=== PATIENT | female | born 1945 | race Hispanic/Latino ===

== ENCOUNTER 2017-10-10 11:22 | Outpatient (CLI) | payer MEDICARE ==
--- NOTE | 2017-10-10 12:41 | XRay Report ---
LEFT KNEE, 3 views: History: Unspecified fracture of upper end of the tibia Compared to 08/06/17. There has been previous internal fixation of a left tibial plateau fracture with metal plate and screws. Alignment is anatomic. Calcified callus bridges the fracture site although the fracture lines remain faintly visible. The remainder of the bony structures are intact. No acute injury is appreciated. The soft tissues are unremarkable. IMPRESSION: Internally fixated and healing left tibial plateau fracture.
== END 2017-10-10 11:23 | disposition home or self-care (01) ==
LOC: XRAY 11:22
PROVIDERS: ATTEND Orthopaedic Surgery
DX: S82.102D Unspecified fracture of upper end of left tibia, subsequent encounter for closed fracture with routine healing (principal); X58.XXXD Exposure to other specified factors, subsequent encounter

== ENCOUNTER 2018-01-26 12:38 | Outpatient (CLI) | payer MEDICARE ==
--- NOTE | 2018-01-29 08:50 | Mammography Report ---
BILATERAL DIGITAL SCREENING MAMMOGRAM WITH CAD: 01/26/18 12:38:00 CLINICAL: Routine screening.Breast cancer survivor status post left partial mastectomy . COMPARISON:01/19/17 and left mammogram 02/06/17 FINDINGS: The breasts are heterogeneously dense, which may obscure small masses. Stable left upper postsurgical scar. Bilateral benign calcifications. The previously described right upper outer clustered calcifications are unchanged from a year ago. No mass, architectural distortion or suspicious calcifications. IMPRESSION: No mammographic evidence of malignancy. BI-RADS CATEGORY: 2 -- Benign RECOMMENDATION: Routine mammographic screening in one year. COMMENT: Patient follow-up letters are generated via our [employer] application.
== END 2018-01-26 12:39 | disposition home or self-care (01) ==
LOC: SPVWC 12:38
PROVIDERS: ATTEND Internal Medicine Hematology & Oncology
DX: Z12.31 Encounter for screening mammogram for malignant neoplasm of breast (principal)
CPT/HCPCS: 77067

== ENCOUNTER 2018-04-06 11:22 | Outpatient (CLI) | payer MEDICARE ==
--- NOTE | 2018-04-06 12:49 | XRay Report ---
Left knee 3 views: History: Pain in left knee. Findings: There is internal fixation noted of tibial plateau fracture with late and screws. Stable hardware. Mild arthritic changes medial compartment knee joint. No evidence of acute fracture. No joint effusion. Impression: Stable hardware. Mild degenerative changes.
== END 2018-04-06 11:23 | disposition home or self-care (01) ==
LOC: XRAY 11:22
PROVIDERS: ATTEND Orthopaedic Surgery
DX: M17.12 Unilateral primary osteoarthritis, left knee (principal)

== ENCOUNTER 2019-02-06 14:19 | Outpatient (CLI) | payer MEDICARE ==
--- NOTE | 2019-02-06 16:28 | Mammography Report ---
BILATERAL DIGITAL SCREENING MAMMOGRAM WITH CAD: 02/06/19 14:19:00 CLINICAL: Routine screening.Breast cancer survivor status post left partial mastectomy . COMPARISON:01/26/18 and 08/17/16 FINDINGS: The breasts are heterogeneously dense, which may obscure small masses. Stable left upper posterior benign postsurgical scar. Scattered bilateral benign calcifications. No mass, suspicious architectural distortion or suspicious calcifications. IMPRESSION: No mammographic evidence of malignancy. BI-RADS CATEGORY: 2 -- Benign RECOMMENDATION: Routine mammographic screening in one year. COMMENT: Patient follow-up letters are generated via our [employer] application.
== END 2019-02-06 14:20 | disposition home or self-care (01) ==
LOC: SPVWC 14:19
PROVIDERS: ATTEND Internal Medicine Hematology & Oncology
DX: Z12.31 Encounter for screening mammogram for malignant neoplasm of breast (principal); E78.00 Pure hypercholesterolemia, unspecified; I10 Essential (primary) hypertension; Z90.710 Acquired absence of both cervix and uterus
CPT/HCPCS: 77067

== ENCOUNTER 2020-06-10 13:53 | Outpatient (CLI) | payer MEDICARE ==
--- NOTE | 2020-06-10 17:23 | Ultrasound Report ---
LEFT DIGITAL DIAGNOSTIC MAMMOGRAM WITH CAD -- 06/10/2020 LEFT LIMITED BREAST ULTRASOUND INDICATION: Abnormal screening mammogram. Follow-up of left breast density. TECHNIQUE: Digital left mammographic imaging was performed. Spot compression views were obtained. Li mited ultrasound was performed. This examination was interpreted with the benefit of Computer-Aided D etection (CAD) analysis. COMPARISON: 05/14/2028, 02/06/2019 FINDINGS: Breast Density: The breasts are extremely dense, which lowers the sensitivity of mammography. MAMMOGRAPHIC FINDINGS: A 9.2 x 7.6 mm spiculated mass persists in the upper outer quadrant of the mid dle depth of the left breast with 4 internal round calcifications. ULTRASOUND FINDINGS: Targeted ultrasound evaluation was performed of the area of interest. In the 2 :00 position, 3 cm from the nipple is a taller than wide hypoechoic solid, calcified mass measuring 9 .1 x 6.3 mm I correlates with the mammographic abnormality. Mildly increased color flow is noted with in/adjacent to this lesion. No right axillary lymphadenopathy or other significant abnormality. IMPRESSION: Highly suspicious left breast mass as above. Biopsy with ultrasound guidance is recommended for furth er evaluation. Follow up recommendation: Biopsy BI-RADS Category 5: Highly Suggestive of Malignancy. A "normal" or negative report should not discourage follow up or biopsy of a clinically significant f inding. A written summary of these findings will be mailed to the patient. The patient will be entered into a mammography reporting system which will generate a reminder letter for the patient's next appointmen t at the appropriate interval. According to the [employer], yearly mammograms are recommended starting at age 40 and continuing as long as a woman is in good health. Breast MRI is recommended for women with an sofia roximately 20-25% or greater lifetime risk of breast cancer, including women with a strong family his tory of breast or ovarian cancer and women who have been treated for Hodgkin's disease. Signer Name: Kavon Pennington MD Signed: 06/10/2020 5:18 PM Workstation Name: [email or web address]
== END 2020-06-10 13:54 | disposition home or self-care (01) ==
LOC: SPVWC 13:53
PROVIDERS: ATTEND Internal Medicine Hematology & Oncology
DX: C50.412 Malignant neoplasm of upper-outer quadrant of left female breast (principal); N63.21 Unspecified lump in the left breast, upper outer quadrant

== ENCOUNTER 2020-07-08 10:37 | Outpatient (CLI) | payer MEDICARE ==
--- NOTE | 2020-07-08 13:04 | Ultrasound Report ---
LEFT BREAST ULTRASOUND GUIDED BIOPSY The procedure was explained to the patient and informed consent obtained. PROCEDURE: Using sonographic guidance, the lesion in the 2:00 position of the left breast was identi fied. 5 mL of 1% buffered lidocaine and 5 mL 1% lidocaine with epinephrine was administered and a sm all skin christin was made with a scalpel. Using a 14 gauge biopsy device, multiple core biopsy samples w ere obtained. The specimens were placed in a 10% formalin solution and sent for histologic analysis. A radio opaque marker clip was placed at the biopsy site. Pressure was held on the biopsy site utilizing the sterile 4 x 4 gauze until all bleeding subsided. A gauze dressing was placed over the biopsy site to provide a pressure dressing. Postbiopsy instructio ns were reviewed with the patient and a copy given to her. No immediate complications occurred. INTERPRETATION: Images made real-time during the procedure demonstrate the biopsy device to be appro priately centered within the lesion. Impression: Successful left breast ultrasound-guided biopsy. Pathology pending. Signer Name: Antionette Tavarez MD Signed: 07/08/2020 1:00 PM Workstation Name: [id number]
--- NOTE | 2020-07-08 13:07 | Mammography Report ---
DIGITAL DIAGNOSTIC MAMMOGRAM WITH CAD, -- 07/08/2020 INDICATION: Postbiopsy mammogram following left breast ultrasound-guided biopsy. TECHNIQUE: Digital left mammographic imaging was performed. This examination was interpreted with the benefit of Computer-aided Detection analysis. COMPARISON: Prior mammogram 05/14/2020 FINDINGS: Breast Density: The breasts are extremely dense, which lowers the sensitivity of mammography. Postbiopsy mammogram reveals a biopsy clip appropriately positioned at site of previously described d ensity with associated calcifications in the 2:00 position of the left breast. IMPRESSION: 1. Appropriately positioned biopsy clip following left breast ultrasound-guided biopsy. Follow up recommendation: No recall. Post biopsy imaging. A "normal" or negative report should not discourage follow up or biopsy of a clinically significant f inding. A written summary of these findings will be mailed to the patient. The patient will be entered into a mammography reporting system which will generate a reminder letter for the patient's next appointmen t at the appropriate interval. According to the [employer], yearly mammograms are recommended starting at age 40 and continuing as long as a woman is in good health. Breast MRI is recommended for women with an sofia roximately 20-25% or greater lifetime risk of breast cancer, including women with a strong family his tory of breast or ovarian cancer and women who have been treated for Hodgkin's disease. Signer Name: Antionette Tavarez MD Signed: 07/08/2020 1:02 PM Workstation Name: [id number]
== END 2020-07-08 10:38 | disposition home or self-care (01) ==
LOC: SPVWC 10:37
PROVIDERS: ATTEND Surgery
DX: N63.21 Unspecified lump in the left breast, upper outer quadrant (principal); N64.1 Fat necrosis of breast; E78.00 Pure hypercholesterolemia, unspecified; I10 Essential (primary) hypertension; F32.9 Major depressive disorder, single episode, unspecified; F41.9 Anxiety disorder, unspecified; Z88.5 Allergy status to narcotic agent; Z88.8 Allergy status to other drugs, medicaments and biological substances; Z79.899 Other long term (current) drug therapy; Z85.3 Personal history of malignant neoplasm of breast; Z90.710 Acquired absence of both cervix and uterus; Z98.890 Other specified postprocedural states; Z86.73 Personal history of transient ischemic attack (TIA), and cerebral infarction without residual deficits
CPT/HCPCS: 88305

== ENCOUNTER 2020-08-12 07:57 | Day surgery (SDC) | payer MEDICARE, MEDICAID ==
[~2020-08-12 07:57] MED LIST: BUPIVACAINE/PF (0.5%) 5 MG/1 ML 10 ML VIAL INFILTRATI ONE; CELECOXIB 200 MG CAP PO NR; GABAPENTIN 300 MG CAP PO NR; HEPARIN 10,000 UNITS/10 ML VIAL ONE; LACTATED RINGERS 1,000 ML IV SCH; MIDAZOLAM 2 MG/2 ML INJ IV NR; SODIUM CHLORIDE 0.9% 500 ML 500 ML ONE; WATER FOR IRRIG STERILE 1,500 ML BOTTLE IR ONE; ceFAZolin/Water 2 GM/20 ML 2 GM/20 ML SYRINGE IV NR
[2020-08-12] MEDS ORDERED: fentaNYL 100 MCG/2 ML INJ IV PRN (08:51)
[2020-08-12] MEDS ORDERED: ONDANSETRON 4 MG/2 ML INJ IV PRN (08:51)
--- NOTE | 2020-08-12 08:51 | Anesthesia Day of Surgery ---
Anesthesia Day of Surgery - Day of Surgery Patient Examined: Yes Patient H&P Reviewed: Yes Patient is NPO: Yes
--- NOTE | 2020-08-12 08:51 | Anesthesia Consultation ---
Anesthesia Consult and Med Hx Date of service: 08/12/20 - Airway Anesthetic Teeth Evaluation: Edentulous ROM Head & Neck: Adequate Mental/Hyoid Distance: Adequate Mallampati Class: Class II Intubation Access Assessment: Probably Good - Pulmonary Exam CTA: Yes - Cardiac Exam Cardiac Exam: RRR - Pre-Operative Health Status ASA Pre-Surgery Classification: ASA3 Proposed Anesthetic Plan: General - Pulmonary Hx Smoking: No Hx Respiratory Symptoms: No Hx Sleep Apnea: No - Cardiovascular System Hx Hypertension: Yes Hx Heart Attack/AMI: No Hx Percutaneous Transluminal Coronary Angioplasty (PTCA): No Hx Cardia Arrhythmia: No - Central Nervous System Hx Neuromuscular Disorder: Yes (tardive dyskinesia) 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 Last dose plavix 08/05/20) Hx Psychiatric Problems: Yes (anxiety; takes xanax regularly) - Gastrointestinal Hx Gastroesophageal Reflux Disease: No - Endocrine Hx Renal Disease: No Hx Liver Disease: No Hx Insulin Dependent Diabetes: No Hx Non-Insulin Dependent Diabetes: No Hx Thyroid Disease: No - Other Systems Hx Cancer: Yes (hx breast ca) - Additional Comments Anesthesia Medical History Comments: Hx PONV.
[2020-08-12] MEDS ORDERED: SCOPOLAMINE TRANSDERMAL PATCH 72 HR TD NR (09:00)
[2020-08-12] MEDS ORDERED: fentaNYL 100 MCG/2 ML INJ ONE (10:13)
[2020-08-12] MEDS ORDERED: propofoL 200 MG/20 ML VIAL IV ONE (10:13)
[2020-08-12] MEDS ORDERED: dexAMETHasone 20 MG/5 ML VIAL ONE (10:35)
[2020-08-12] MEDS ORDERED: ONDANSETRON 4 MG/2 ML INJ ONE (10:35)
[2020-08-12] MEDS ORDERED: LIDOCAINE (1%) 10 MG/1 ML VIAL 20 ML MDV ONE (10:59)
[2020-08-12] MEDS ORDERED: BUPIVACAINE/PF (0.25%) 2.5 MG/ML 30 ML VIAL INFILTRATI ONE ×2 (10:59→11:02)
[2020-08-12] MEDS ORDERED: LIDOCAINE (1%) 10 MG/1 ML VIAL 20 ML MDV INFILTRATI ONE (11:02)
[2020-08-12] MEDS ORDERED: ePHEDrine SULFATE 50 MG/1 ML INJ ONE (11:21)
[2020-08-12] MEDS ORDERED: SODIUM CHLORIDE 0.9% 1000 ML 1,000 ML ONE (11:44)
[2020-08-12] MEDS ORDERED: WATER FOR IRRIG STERILE 1,500 ML BOTTLE IR ONE (11:50)
--- NOTE | 2020-08-12 12:17 | Operative Report ---
Operative Report Operative Report: Operative Report: August 12, 2020 Preoperative diagnosis: Left breast mass of the upper outer quadrant Postoperative diagnosis: Same Procedure: Ultrasound guided left breast mass excisional biopsy of the upper outer quadrant Surgeon: Kelsey Oshea MD First Responder: Guillermina Heath MD Anesthesia: General Findings: Left breast mass and clip present within radiograph specimen Complications: None EBL: Minimal Disposition: PACU in good condition Indications for operative procedure: This is a 75 year old lady with a personal history of left breast cancer with recent diagnostic imaging of a suspicous left breast mass of the upper outer quadrant at the 2:00 position 3 cm FN. Recent biopsy was performed by radiology with findings of fat necrosis with acute and chronic inflammation and reactive histiocytes and negative for malignancy; findings considered discordant and recommendation for excision to rule out malignancy. She has a personal history of Stage I left breast cancer of upper inner quadrant post [place] partial maste[place] [address] Rosales. She completed adjuvant radiation therapy. She wished to proceed with the above procedure. Procedure in detail: Patient was then taken to the operating room. Gen. anesthesia was administered. Ultrasound was used to cary the area of concern at the 2:00 position 3-4 cm FN with irregular hypoechoic mass with clip present. Timeout was performed. A periareolar breast incision was made with a 15 blade knife and dissection taken down to subcutaneous tissues. First began raising of the superior flap with with dissection taken superiorly past the area of concern and then down posteriorly, followed by raising of the inferior flap, medial flap and lateral flap with all flaps taken past the area of concern and dissection taken down anterior to the pectoralis muscle. The breast area of concern was appropriately removed posteriorly anterior to the pectoralis muscle with the aid of the Bovie cautery. Specimen was marked and then sent to pathology and radiology; radiograph specimen with mass and clip present. Breast cavity was irrigated and hemostasis was obtained. The posterior deep breast tissues were approximated and closed using interrupted 3-0 Vicryl. The subcutaneous tissues were approximated and closed using interrupted 3-0 Vicryl followed by closing of the skin with a running 4-0 Monocryl and skin affix. The patient tolerated surgery very well and she was awaken from anesthesia without any complication and transported to PACU in good condition.
--- NOTE | 2020-08-12 12:19 | Short Stay Summary ---
Short Stay Documentation Date of service: 08/12/20 - History H&P: obtained from office - Allergies and Medications Current Medications: Allergies codeine Allergy (Verified 07/29/20 12:27) Vomiting Home Medications Medication Instructions Recorded Confirmed Last Taken Type ALPRAZolam [Xanax TAB] 0.5 mg PO Q8H PRN #30 tablet 08/16/17 07/29/20 08/11/20 Rx Clopidogrel Bisulfate [Plavix] 75 mg PO QDAY #30 tablet 08/16/17 08/12/20 08/04/20 Rx FLUoxetine [PROzac] 20 mg PO QDAY #30 capsule 08/16/17 07/29/20 08/11/20 Rx hydroCHLOROthiazide [HCTZ] 12.5 mg PO QDAY #30 capsule 08/16/17 07/29/20 08/11/20 Rx Alendronate Sodium 35 mg PO DAILY 07/29/20 07/29/20 08/11/20 History Ca/D3/Mag Ox/Zinc/Resident Manager/Oleg/Bor 1 each PO DAILY 07/29/20 08/12/20 08/04/20 History [Calcium 600+D3 Plus Caplet] Cyanocobalamin (Vitamin B-12) 1 tab PO DAILY 07/29/20 07/29/20 08/11/20 History [Vitamin B-12] Fenofibrate [Tricor] 145 mg PO QDAY 07/29/20 07/29/20 08/11/20 History Hydroxyzine HCl [hydrOXYzine] 50 mg PO TID 07/29/20 07/29/20 08/11/20 History Mv-Mn/Folic Acid/Vit K/Lrhp336 1 each PO DAILY 07/29/20 07/29/20 08/11/20 History [Alive Once Daily Women 50 Plus] Deutetrabenazine [Austedo] 2 tab PO BID 08/12/20 08/12/20 08/12/20 08:45 History traMADoL [Ultram 50 MG tab] 50 mg PO Q6HR PRN #15 tablet 08/12/20 Unknown Rx Active Medications Celecoxib (Celebrex) 200 mg PO PREOP NR Stop: 08/12/20 23:00 Last Admin: 08/12/20 08:49 Dose: 200 mg Documented by: Fentanyl (Sublimaze) 50 mcg IV Q5MIN PRN PRN Reason: Pain , Severe (7-10) Gabapentin (Gabapentin) 300 mg PO PREOP NR Stop: 08/12/20 23:00 Last Admin: 08/12/20 08:48 Dose: 300 mg Documented by: Cefazolin Sodium (Ancef/Sterile Water 2 Gm/20 Ml) 2 gm in 20 mls @ 80 mls/hr IV PREOP NR; Protocol Stop: 08/12/20 15:00 Lactated Ringer's (Lactated Ringers) 1,000 mls @ 100 mls/hr IV DIRECT ELIDA Stop: 08/12/20 23:59 Last Admin: 08/12/20 09:10 Dose: 100 mls/hr Documented by: Midazolam HCl (Versed) 2 mg IV PREOP NR Stop: 08/12/20 23:00 Last Admin: 08/12/20 09:19 Dose: 2 mg Documented by: Ondansetron HCl (Zofran) 4 mg IV ONCE PRN PRN Reason: Nausea And Vomiting Scopolamine (Transderm-Scop) 1 each TD PREOP NR Stop: 08/12/20 23:59 Last Admin: 08/12/20 09:26 Dose: 1 each Documented by: - Brief post op/procedure progress note Date of procedure: 08/12/20 Pre-op diagnosis: Left breast mass upper outer quadrant Post-op diagnosis: same Procedure: Left breast mass excisional biopsy Anesthesia: GETA Findings: mass and clip present Surgeon: VAL SEXTON Estimated blood loss: minimal Pathology: list Specimen disposition: to lab Condition: stable - Disposition Condition at discharge: Good Disposition: DC-01 TO HOME OR SELFCARE Short Stay Discharge Plan Activity: other (no heavy lifting) Diet: regular Wound: keep clean and dry (may shower in 48 hours; wear breast binder; no baths) Follow up with: VAL SEXTON MD [Staff Physician] - 7 Days Prescriptions: traMADoL [Ultram 50 MG tab] 50 mg PO Q6HR PRN #15 tablet PRN Reason: Pain
[2020-08-12 12:33] VITALS: BP 132/56
--- NOTE | 2020-08-12 13:07 | Post Anesthesia Evaluation ---
- Post Anesthesia Evaluation Patient Participated: Yes Airway Patent: Yes Stable Respiratory Function: Yes Nausea/Vomiting: No Temp > 96.8F: Yes Pain Manageable: Yes Adequeate Hydration: Yes Anesthesia Complications: No
--- NOTE | 2020-08-12 13:46 | Mammography Report ---
Left breast tissue specimen radiograph INDICATION: Excisional procedure today Specimen contains site of recent biopsy including the clip and several calcifications adjacent to the clip IMPRESSION: Satisfactory specimen radiograph Signer Name: Jorge Zamarripa MD Signed: 08/12/2020 1:42 PM Workstation Name: [id number]
== END 2020-08-12 12:55 | disposition home or self-care (01) ==
LOC: OR 07:57
PROVIDERS: ATTEND Surgery
DX: N63.21 Unspecified lump in the left breast, upper outer quadrant (principal); Z20.828 Contact with and (suspected) exposure to other viral communicable diseases; N64.89 Other specified disorders of breast; F32.9 Major depressive disorder, single episode, unspecified; F41.9 Anxiety disorder, unspecified; I25.10 Atherosclerotic heart disease of native coronary artery without angina pectoris; E78.00 Pure hypercholesterolemia, unspecified; I10 Essential (primary) hypertension; Z98.890 Other specified postprocedural states; Z79.899 Other long term (current) drug therapy; Z88.5 Allergy status to narcotic agent; Z98.41 Cataract extraction status, right eye; Z98.42 Cataract extraction status, left eye; Z90.12 Acquired absence of left breast and nipple; Z90.710 Acquired absence of both cervix and uterus; Z80.0 Family history of malignant neoplasm of digestive organs; Z86.73 Personal history of transient ischemic attack (TIA), and cerebral infarction without residual deficits
CPT/HCPCS: 19125; 76098; 88307; J0690; J1100; J1644; J2250; J2405; J2704; J3010; J7030; J7040; J7120; U0003

== ENCOUNTER 2021-01-05 12:52 | Outpatient (CLI) | payer MEDICARE ==
--- NOTE | 2021-01-05 14:29 | Mammography Report ---
LEFT DIGITAL DIAGNOSTIC MAMMOGRAM WITH CAD CONVENTIONAL, 01/05/2021 LEFT LIMITED BREAST ULTRASOUND CLINICAL INFORMATION / INDICATION: Personal history of left breast cancer with lumpectomy and radiati on, multiple left breast seroma drainages subsequently, left palpable abnormality in area of scar TECHNIQUE: Digital left mammographic imaging was performed. Limited ultrasound was performed. This ex amination was interpreted with the benefit of Computer-Aided Detection (CAD) analysis. COMPARISON: Bilateral mammogram 05/14/2020 FINDINGS: Breast Density: The breasts are extremely dense, which lowers the sensitivity of mammography. MAMMOGRAPHIC FINDINGS: Left surgical changes are again seen. Benign-appearing calcifications are agai n noted. In the area of surgical scar and palpable abnormality there is a diffuse increase in density . ULTRASOUND FINDINGS: Targeted ultrasound evaluation was performed of the area of interest. And the si te of palpable concern and prior surgery as well as prior seroma drainages, an ovoid 3.8 cm fluid col lection is seen with mild dependent echoes most consistent with a reaccumulated seroma. IMPRESSION: Recurrence of postoperative seroma Follow up recommendation: Drainage as clinically needed BI-RADS Category 2: Benign. A "normal" or negative report should not discourage follow up or biopsy of a clinically significant f inding. A written summary of these findings will be mailed to the patient. The patient will be entered into a mammography reporting system which will generate a reminder letter for the patient's next appointmen t at the appropriate interval. According to the [employer], yearly mammograms are recommended starting at age 40 and continuing as long as a woman is in good health. Breast MRI is recommended for women with an sofia roximately 20-25% or greater lifetime risk of breast cancer, including women with a strong family his tory of breast or ovarian cancer and women who have been treated for Hodgkin's disease. Signer Name: Jorge Zamarripa MD Signed: 01/05/2021 2:25 PM Workstation Name: [id number]
== END 2021-01-05 12:53 | disposition home or self-care (01) ==
LOC: SPVWC 12:52
PROVIDERS: ATTEND Surgery
DX: N63.21 Unspecified lump in the left breast, upper outer quadrant (principal); Z98.890 Other specified postprocedural states

== ENCOUNTER 2021-05-18 09:01 | Outpatient (CLI) | payer MEDICARE ==
--- NOTE | 2021-05-18 11:47 | Mammography Report ---
DIGITAL SCREENING MAMMOGRAM WITH CAD, 05/18/2021 CLINICAL INFORMATION / INDICATION: Routine screening mammography. TECHNIQUE: Digital bilateral 2D mammography was obtained in the craniocaudal and mediolateral obliqu e projections. This examination was interpreted with the benefit of Computer-Aided Detection analysis . COMPARISON: 01/05/2021, 07/08/2020, 05/14/2020 FINDINGS: Breast Density: The breasts are extremely dense, which lowers the sensitivity of mammography. No dominant mass, suspicious calcifications, or architectural distortion in either breast. Postoperative changes are again seen on the left with bilateral benign-appearing calcifications. IMPRESSION: No mammographic evidence of malignancy. Follow up recommendation: Routine yearly BI-RADS Category 2: Benign. A "normal" or negative report should not discourage follow up or biopsy of a clinically significant f inding. A written summary of these findings will be mailed to the patient. The patient will be entered into a mammography reporting system which will generate a reminder letter for the patient's next appointmen t at the appropriate interval. The [employer] recommends yearly mammograms starting at age 40 and continuing as l jose as a woman is in good health. Breast MRI is recommended for women with an approximate 20-25% or greater lifetime risk of breast cancer, including women with a strong family history of breast or ova alison cancer or who have been treated for Hodgkin's disease. Signer Name: Kavon Pennington MD Signed: 05/18/2021 11:42 AM Workstation Name: [id number]
== END 2021-05-18 09:02 | disposition home or self-care (01) ==
LOC: SPVWC 09:01
PROVIDERS: ATTEND Surgery
DX: Z12.31 Encounter for screening mammogram for malignant neoplasm of breast (principal); N64.89 Other specified disorders of breast
CPT/HCPCS: 77067

== ENCOUNTER 2022-05-24 13:19 | Outpatient (CLI) | payer MEDICARE ==
--- NOTE | 2022-05-25 15:20 | Mammography Report ---
DIGITAL SCREENING MAMMOGRAM WITH CAD, 05/24/2022 CLINICAL INFORMATION / INDICATION: Routine screening mammography. TECHNIQUE: Digital bilateral 2D mammography was obtained in the craniocaudal and mediolateral oblique projections. This examination was interpreted with the benefit of Computer-Aided Detection analysis. COMPARISON: 08/17/2016 through 05/18/2021. FINDINGS: Breast Density: The breasts are extremely dense, which lowers the sensitivity of mammography. No dominant mass, suspicious calcifications, or architectural distortion in either breast. There are benign scattered calcifications bilaterally. Scarring in the left upper outer quadrant is s table. No new abnormality is seen. IMPRESSION: No mammographic evidence of malignancy. Follow up recommendation: Routine yearly screening mammogram. BI-RADS Category 2: BENIGN. A "normal" or negative report should not discourage follow up or biopsy of a clinically significant f inding. A written summary of these findings will be mailed to the patient. The patient will be entered into a mammography reporting system which will generate a reminder letter for the patient's next appointmen t at the appropriate interval. The [employer] recommends yearly mammograms starting at age 40 and continuing as l jose as a woman is in good health. Breast MRI is recommended for women with an approximate 20-25% or greater lifetime risk of breast cancer, including women with a strong family history of breast or ova alison cancer or who have been treated for Hodgkin's disease. Signer Name: Thien Rousseau MD Signed: 05/25/2022 3:16 PM Workstation Name: [id number]
== END 2022-05-24 13:20 | disposition home or self-care (01) ==
LOC: SPVWC 13:19
PROVIDERS: ATTEND Internal Medicine
DX: Z12.31 Encounter for screening mammogram for malignant neoplasm of breast (principal); N64.89 Other specified disorders of breast
CPT/HCPCS: 77067